=== PATIENT | female | born 1955 | race Caucasian/White ===

== ENCOUNTER 2018-02-02 12:08 | Inpatient (IN) | payer MEDICAID, OTHER ==
[~2018-02-02] VITALS: Ht 152.4 cm; Wt 65.3 kg
[2018-02-02 12:19] VITALS: BP 120/77
--- NOTE | 2018-02-02 12:27 | NUR ---
PT AMBULATES TO BED 2 Addendum: 02/02/18 at 1230 by [email or web address] REPORT GIVEN TO MIREYA COSTA
--- NOTE | 2018-02-02 12:30 | NUR ---
62Y/F BIB DAUGHTER IN [place] C/O LEFT FLANK PAIN. PT STATES " SHE HAS FLANK PAIN RADIATING TO L THIGH X YESTERDAY." PT TOOK IBUPRUFEN AT 3 AM TODAY WITH NO RELIEVE. PT SKIN IS PINK/WARM/DRY; AAOX4 WITH EVEN AND STEADY GAIT; LUNGS CLEAR BL; HR EVEN AND REGULAR; PT DENIES ANY FEVER, CP, SOB, OR COUGH AT THIS TIME; PATIENT STATES PAIN OF 8/10 AT THIS TIME; VSS; PATIENT POSITIONED FOR COMFORT; HOB ELEVATED; BEDRAILS UP X1; BED DOWN. ER MD MADE AWARE OF PT STATUS. HX ; GASTRIC ULCER, OVARY REMOVED 27 YEARS AGO MED : NONE
[2018-02-02] MEDS ORDERED: NACL 0.9% 1,000 ML IV SCH (12:44)
[2018-02-02] MEDS ORDERED: ONDANSETRON 4 MG/2 ML VIAL IVP ONE (12:45)
[2018-02-02] MEDS ORDERED: MORPHINE SULFATE 2 MG/ML SYR IVP ONE (12:45)
[2018-02-02] MEDS ORDERED: KETOROLAC 30 MG/ML VIAL IVP ONE (12:45)
--- NOTE | 2018-02-02 12:45 | NUR ---
Patient being evaluated by physician at bedside.
[2018-02-02 13:26] LABS: APPEARANCE,URINE HAZY (CLEAR); BILIRUBIN,URINE 1+ (NEGATIVE); BLOOD, URINE 3+ (NEGATIVE); COLOR,URINE RED (YELLOW); LEUKOCYTE ESTERASE ,URINE TRACE (NEGATIVE); NITRITE, URINE NEGATIVE (NEGATIVE); UGLUCOSE NEGATIVE (NEGATIVE)
[2018-02-02 13:30] LABS: BASOPHILS # (AUTO) 0.1 K/uL (0.00-0.22); EOSINOPHILS # (AUTO) 0.1 K/uL (0-0.4); EOSINOPHILS % (AUTO) 0.8 % (0.0-4.0); HEMATOCRIT 43.7 % (36-48); HEMOGLOBIN 14.6 g/dL (12.0-16.0); LYMPHOCYTES # (AUTO) 1.7 K/uL (2.5-16.5); LYMPHOCYTES % (AUTO) 21.7 % (20.5-51.1); MEAN CORPUSCULAR HEMOGLOBIN 29 pg (27-31); MEAN CORPUSCULAR HGB CONC 34 g/dL (33-37); MEAN CORPUSCULAR VOLUME 87.5 fL (80-94); MONOCYTES # (AUTO) 0.5 K/uL (0.8-1.0); MONOCYTES % (AUTO) 6.5 % (1.7-9.3); NEUTROPHILS # (AUTO) 5.6 K/uL (1.8-7.7); PLATELET COUNT (AUTO) 297 K/uL (140-450); RED BLOOD CELL COUNT(AUTO) 4.99 MIL/uL (4.20-5.40); RED CELL DISTRIBUTION WIDTH 12.8 % (11.6-13.7); WHITE BLOOD COUNT (AUTO) 7.9 K/uL (4.8-10.8)
[2018-02-02 13:32] LABS: RBC,URINE TOO NUMEROUS TO COUN /HPF (0-5); WBC,URINE 0-5 (RARE) /HPF (0-5)
[2018-02-02 13:53] LABS: ANION GAP 13.9 (8-16); CARBON DIOXIDE 24.5 mmol/L (21-32); CREATININE 0.6 mg/dL (0.6-1.3); POTASSIUM 3.4 mmol/L (3.5-5.1)
[2018-02-02 14:00] LABS: ALBUMIN 3.9 g/dL (3.4-5.0); TOTAL BILIRUBIN 0.8 mg/dL (0.0-1.0)
[2018-02-02] MEDS ORDERED: DOCUSATE SODIUM 100 MG GELCAP PO PRN (15:00)
[2018-02-02] MEDS ORDERED: ACETAMINOPHEN 325 MG TAB PO PRN (15:00)
[2018-02-02] MEDS ORDERED: ONDANSETRON 4 MG/2 ML VIAL IM/IVP PRN (15:00)
[2018-02-02] MEDS ORDERED: HYDROcodone/APAP 5/325 MG 1 TAB TAB PO PRN (15:00)
--- NOTE | 2018-02-02 15:19 | NUR ---
Patient will be admitted to care of DR. REYNOLDS. Admited to MED SURG. Will go to room 119-A. Belongings list completed. Report to JOSIANE ALBERTO.
[2018-02-02 15:37] LABS: BARBITURATE, URINE NEG. ng/ml (NEG <=200); BENZODIAZEPINE, URINE NEG. ng/mL (NEG <=200); CANNABINOID, URINE NEG. ng/mL (NEG <=50); COCAINE, URINE NEG. ng/mL (NEG <=300); OPIATE, URINE NEG. ng/mL (NEG <=2000); PHENCYCLIDINE SCREEN,URINE NEG. ng/mL (NEG <=25)
[2018-02-02] MEDS ORDERED: OMEP20TC12 PO (15:37)
--- NOTE | 2018-02-02 15:45 | NUR ---
PATIENT ADMITTED TO THE UNIT FROM ED. PATIENT AWAKE, ALERT AND ORIENTED. PATIENT ON ROOM AIR. NO S/S OF DISTRESS NOTED. PATIENT IS AMBULATORY. PATIENT DENIES ANY PAIN AT THIS TIME. BED LOWERED WITH CALL LIGHT WITHIN REACH. WILL CONTINUE TO MONITOR
[2018-02-02] MEDS: NACL 0.9% 1,000 ML IV SCH (15:57)
[2018-02-02 16:03] VITALS: BP 94/43
[2018-02-02 16:10] LABS: MAGNESIUM 2.2 mg/dL (1.8-2.4)
[2018-02-02 16:11] LABS: FREE T4 (FREE THYROXINE) 1.21 ng/dL (0.76-1.46); THYROID STIMULATING HORMONE 1.84 uIU/mL (0.34-3.74)
[2018-02-02] MEDS ORDERED: cefTRIAXone 1,000 MG VIAL ONE (17:51)
--- NOTE | 2018-02-02 18:48 | NUR ---
PATIENT AWAKE IN BED, WATCHING TELEVISION. AT BEDSIDE. NO C/O PAIN AT THIS TIME
[2018-02-02] MEDS ORDERED: POTASSIUM CHLORIDE 10 MEQ TABER PO SCH (19:00)
[2018-02-02] MEDS ORDERED: TAMSULOSIN 0.4 MG CAP PO SCH (19:00)
[2018-02-02] MEDS: KETOROLAC 15 MG/ML VIAL IVP PRN (19:01)
--- NOTE | 2018-02-02 19:20 | NUR ---
PATIENT REPORT GIVEN AT BEDSIDE. PATIENT ENDORSED IN STABLE CONDITION
--- NOTE | 2018-02-02 19:21 | NUR ---
REPORT RECEIVED FROM AM NURSE AT BEDSIDE. PT IN STABLE CONDITION. AAOX4. VS STABLE. INTRODUCED SELF TO PT AND FAMILY AND BOARD UPDATED. MALAY SPEAKING ONLY. IV SITE PATENT AND INTACT L AC 22G RUNNING NS AT 110ML/HR. SKIN WARM, DRY, AND INTACT WITH NO OPEN WOUNDS. PT HAS 5MM CALCULI SO URINE STRAINING IS TO BE DONE. BED LOCKED IN LOW POSITION. CALL RUEDA WITHIN REACH.
[2018-02-02 20:00] VITALS: BP 116/51
--- NOTE | 2018-02-02 22:30 | NUR ---
PT ASLEEP AT BEDSIDE. NO S/S OF DISTRESS NOTED. CHEST EXPANSION VISIBLE. WILL CONTINUE TO MONITOR.
[2018-02-03] VITALS: BP 81/44
[2018-02-03] MEDS: KETOROLAC 15 MG/ML VIAL IVP PRN (00:38)
--- NOTE | 2018-02-03 02:00 | NUR ---
NEW IV BAG OF NS HUNG. PT AWAKENED WHEN HANGING BAG. NO S/S OF DISTRESS.
[2018-02-03] MEDS: NACL 0.9% 1,000 ML IV SCH ×3 (02:10→14:45)
--- NOTE | 2018-02-03 05:12 | NUR ---
PT IN 10/10 PAIN. NORCO GIVEN. PT TOLERATED WELL.
--- NOTE | 2018-02-03 06:38 | NUR ---
PATIENT HAS BEEN SCREENED AND CATEGORIZED LOW NUTRITION RISK. PATIENT WILL BE SEEN WITHIN 7 DAYS OF ADMISSION. 02/09/18 ROSS ELKINS MS, RDN
--- NOTE | 2018-02-03 07:10 | NUR ---
REPORT GIVEN TO AM NURSE AT BEDSIDE. PT IN STABLE CONDITION.
--- NOTE | 2018-02-03 07:15 | NUR ---
RECEIVED PATIENT REPORT AT BEDSIDE. PATIENT ASLEEP BUT AROUSABLE. NO S/S OF DISTRESS. NO C/O PAIN AT THIS TIME. IV LINE TO THE LEFT AC INTACT WITH IVF INFUSING WELL. BED LOWERED WITH CALL LIGHT WITHIN REACH. WILL CONTINUE TO MONITOR
[2018-02-03 07:38] LABS: BASOPHILS # (AUTO) 0.1 K/uL (0.00-0.22); EOSINOPHILS # (AUTO) 0.1 K/uL (0-0.4); EOSINOPHILS % (AUTO) 1.3 % (0.0-4.0); HEMATOCRIT 38.5 % (36-48); HEMOGLOBIN 12.9 g/dL (12.0-16.0); LYMPHOCYTES # (AUTO) 1.5 K/uL (2.5-16.5); MEAN CORPUSCULAR HEMOGLOBIN 30 pg (27-31); MEAN CORPUSCULAR HGB CONC 34 g/dL (33-37); MEAN CORPUSCULAR VOLUME 88.4 fL (80-94); MONOCYTES # (AUTO) 0.4 K/uL (0.8-1.0); MONOCYTES % (AUTO) 7.2 % (1.7-9.3); NEUTROPHILS # (AUTO) 3.9 K/uL (1.8-7.7); NEUTROPHILS % (AUTO) 65.5 % (42.2-75.2); PLATELET COUNT (AUTO) 252 K/uL (140-450); RED BLOOD CELL COUNT(AUTO) 4.36 MIL/uL (4.20-5.40); WHITE BLOOD COUNT (AUTO) 5.9 K/uL (4.8-10.8)
[2018-02-03 07:47] VITALS: BP 93/43
[2018-02-03 07:57] LABS: ANION GAP 12.9 (8-16); CARBON DIOXIDE 23.9 mmol/L (21-32); CREATININE 0.6 mg/dL (0.6-1.3); POTASSIUM 3.8 mmol/L (3.5-5.1)
[2018-02-03] MEDS ORDERED: NACL 0.9% 1,000 ML IV SCH ×2 (08:05→08:25)
[2018-02-03 08:13] LABS: MAGNESIUM 1.9 mg/dL (1.8-2.4); PHOSPHORUS 2.7 mg/dL (2.5-4.9)
[2018-02-03] MEDS: LACTOBACILLUS RHAMNOSUS GG 1 EACH CAP PO SCH (08:34)
[2018-02-03] MEDS: PANTOPRAZOLE 40 MG TABEC PO SCH (08:34)
[2018-02-03] MEDS: TAMSULOSIN 0.4 MG CAP PO SCH (08:35)
[2018-02-03] MEDS ORDERED: NON-FORMULARY ITEM (Omeprazole (Omeprazole) 20 MG) PO SCH (09:00)
--- NOTE | 2018-02-03 09:45 | NUR ---
PATIENT AMBULATED TO THE BATHROOM TO VOID. URINE STRAINED. NO CALCULUS NOTED
[2018-02-03 10:52] LABS: T4 (THYROXINE) 8.2 ug/dL (4.5-12.0)
--- NOTE | 2018-02-03 11:07 | NUR ---
PATIENT ASLEEP IN BED. NO S/S OF DISTRESS NOTED
[2018-02-03 16:00] VITALS: BP 103/48
[2018-02-03 16:57] LABS: CHOL/HDL RATIO 5.3 (1-4.5)
--- NOTE | 2018-02-03 19:14 | NUR ---
PATIENT REPORT GIVEN AT BEDSIDE. PATIENT ENDORSED IN STABLE CONDITION
--- NOTE | 2018-02-03 19:15 | NUR ---
REPORT RECEIVED FROM AM NURSE AT BEDSIDE. PT IN STABLE CONDITION. AAOX4. INTRODUCED SELF AND BOARD UPDATED. IV SITE PATENT AND INTACT. SKIN WARM, DRY, AND INTACT WITH NO OPEN WOUNDS. PT IS [place] SPEAKING ONLY. AMBULATORY. BED LOCKED IN LOW POSITION. CALL RUEDA WITHIN REACH.
--- NOTE | 2018-02-03 20:45 | NUR ---
PT AWAKE AND ALERT IN BED. FAMILY AT BEDSIDE. NO S/S OF DISTRESS AND STATES NO PAIN.
[2018-02-04] VITALS: BP 113/42
--- NOTE | 2018-02-04 00:30 | NUR ---
PT FLUIDS ENDED. NEW NS BAG HUNG. PT SLEEPING BUT AROUSABLE UPON ENTERING ROOM. WILL CONTINUE TO MONITOR.
[2018-02-04] MEDS: NACL 0.9% 1,000 ML IV SCH (01:30)
--- NOTE | 2018-02-04 03:30 | NUR ---
PT UP OUT OF BED TO USE RESTROOM. NO S/S OF DISTRESS NOTED. WILL CONTINUE TO MONITOR.
--- NOTE | 2018-02-04 05:30 | NUR ---
PT SLEEPING LEFT LATERAL. NO S/S OF DISTRESS. CHEST EXPANSION VISIBLE. WILL CONTINUE TO MONITOR.
[2018-02-04 06:23] LABS: BASOPHILS % (AUTO) 0.8 % (0.0-2.0); EOSINOPHILS # (AUTO) 0.3 K/uL (0-0.4); EOSINOPHILS % (AUTO) 4.7 % (0.0-4.0); HEMATOCRIT 38.2 % (36-48); HEMOGLOBIN 12.8 g/dL (12.0-16.0); LYMPHOCYTES # (AUTO) 2.4 K/uL (2.5-16.5); LYMPHOCYTES % (AUTO) 44.5 % (20.5-51.1); MEAN CORPUSCULAR HEMOGLOBIN 30 pg (27-31); MEAN CORPUSCULAR HGB CONC 34 g/dL (33-37); MEAN CORPUSCULAR VOLUME 88.3 fL (80-94); MONOCYTES # (AUTO) 0.4 K/uL (0.8-1.0); MONOCYTES % (AUTO) 7.9 % (1.7-9.3); NEUTROPHILS # (AUTO) 2.3 K/uL (1.8-7.7); NEUTROPHILS % (AUTO) 42.1 % (42.2-75.2); PLATELET COUNT (AUTO) 247 K/uL (140-450); RED BLOOD CELL COUNT(AUTO) 4.32 MIL/uL (4.20-5.40); RED CELL DISTRIBUTION WIDTH 12.6 % (11.6-13.7); WHITE BLOOD COUNT (AUTO) 5.3 K/uL (4.8-10.8)
[2018-02-04 06:48] LABS: ANION GAP 12.9 (8-16); CARBON DIOXIDE 25.7 mmol/L (21-32); CREATININE 0.6 mg/dL (0.6-1.3); POTASSIUM 3.6 mmol/L (3.5-5.1)
[2018-02-04 06:53] LABS: MAGNESIUM 1.8 mg/dL (1.8-2.4); PHOSPHORUS 2.4 mg/dL (2.5-4.9)
--- NOTE | 2018-02-04 07:15 | NUR ---
REPORT GIVEN TO AM NURSE AT BEDSIDE. PT IN STABLE CONDITION.
--- NOTE | 2018-02-04 07:16 | NUR ---
RECEIVED REPORT FORM PM NURSE AT THE BEDSIDE. PT LYING ON BED COMFORTABLY. INTRODUCED SELF AND UPDATED BOARD. PT DENIED PAIN. NO SIGH OF DISTRESS. PT HAS IF ACCESS ON LFT HAND 22 G, NS INFUSING AT 110 ML/HR. CALL LIGHT WITHIN PT REACH. BED AT LOWER POSITION. WILL CONTINUE TO MONITOR PT.
[2018-02-04 08:00] VITALS: BP 115/54
[2018-02-04] MEDS: PANTOPRAZOLE 40 MG TABEC PO SCH (08:49)
[2018-02-04] MEDS: TAMSULOSIN 0.4 MG CAP PO SCH (08:49)
[2018-02-04] MEDS: LACTOBACILLUS RHAMNOSUS GG 1 EACH CAP PO SCH (08:49)
--- NOTE | 2018-02-04 08:50 | NUR ---
ADMINISTERED MEDS TO PT , TOLERATED WELL. P[T SITTING ON HER BED. HAVING BREAKFAST. FAMILY AT THE BEDSIDE. DENIES PAIN. NO SIGN OF DISTRESS. STRAINED HER URINE, NO STONE FOUND. CALL LIGHT WITHIN PT REACH. WILL CONTINUE TO MONITOR PT.
[2018-02-04] MEDS ORDERED: SODIUM PHOS / POTASSIUM PHOS 1 PKT PDR PO SCH (10:19)
[2018-02-04] MEDS ORDERED: TAMS0.4C96 PO (10:30)
[2018-02-04] MEDS ORDERED: ACET-9525 PO (10:30)
[2018-02-04] MEDS ORDERED: DOCU-299 PO (10:42)
--- NOTE | 2018-02-04 11:00 | NUR ---
CHECKED ON PT. ASKED IF SHE WANTED PNA VACCINE. PT WANTED IT. INFORMED DR ABOUT PNA VACCINATION. ORDER FOR THE PNA VACCINE. WILL ADMINISTER VACCINE AT THE TIME OF DISCHARGE. WILL CONTINUE TO MONITOR THE PT.
[2018-02-04 12:23] VITALS: BP 111/40
[2018-02-04] MEDS ORDERED: PNEUMOCOCCAL VACCINE 23 MCG/0.5 ML VIAL IMVAC SCH (12:55)
--- NOTE | 2018-02-04 13:45 | NUR ---
PT DISCHARGED. EXPLAINED ALL THE INSTRUCTION ORDERED TO THE PT. DAUGHTER IN[place] AT THE BEDSIDE. ALL DC PAPER AND THE PRESCRIPTION GIVEN TO THE PT. PNA VACCINE GIVEN AT THE TIME OF DC. TOLERATED WELL. PT IN STABLE CONDITION. PT LEFT THE HOSPITAL WITH ALL THE BELONGINGS AND WALKED OUT WITH HER GRANDDAUGHTER.
== END 2018-02-04 13:45 | disposition home or self-care (01) | DRG 465 ==
LOC: MED 12:08 → MTU 14:59
PROVIDERS: ADMIT General Practice; ATTEND General Practice
PROC: 3E0234Z Introduction of Serum, Toxoid and Vaccine into Muscle, Percutaneous Approach (ICD-10-PCS; principal; 2018-02-04)
DX: N13.2 Hydronephrosis with renal and ureteral calculous obstruction (principal); E87.8 Other disorders of electrolyte and fluid balance, not elsewhere classified; I95.9 Hypotension, unspecified; I48.91 Unspecified atrial fibrillation; E83.39 Other disorders of phosphorus metabolism; K25.9 Gastric ulcer, unspecified as acute or chronic, without hemorrhage or perforation; N39.0 Urinary tract infection, site not specified; E87.6 Hypokalemia; K21.9 Gastro-esophageal reflux disease without esophagitis; E83.52 Hypercalcemia; R31.9 Hematuria, unspecified; R82.4 Acetonuria; K42.9 Umbilical hernia without obstruction or gangrene; E78.5 Hyperlipidemia, unspecified; Z23 Encounter for immunization
CPT/HCPCS: 36415; 71045; 80048; 80053; 80305; 81001; 82150; 83036; 83690; 83735; 83880; 83970; 84100; 84436; 84439; 84443; 84479; 85025; 85610; 85730; 87081; 87086; 90732; 93005; 96361; 96374; 96375; 99285; J0696; J1885; J2270; J2405; J7030; J7060; Q0092

== ENCOUNTER 2021-04-19 21:56 | Emergency (ER) | payer MEDICAID, OTHER ==
[~2021-04-19] VITALS: Ht 157.5 cm; Wt 68.5 kg
[~2021-04-19 21:56] MED LIST: ACET-9525 PO; DOCU-299 PO; OMEP-278 PO; TAMS0.4C96 PO
[2021-04-19 22:18] VITALS: BP 130/70
--- NOTE | 2021-04-20 01:15 | NUR ---
SEEN AND EXAMINED BY [facility]
[2021-04-20] MEDS ORDERED: NACL 0.9% 1,000 ML IV ONE (01:20)
[2021-04-20] MEDS ORDERED: ONDANSETRON 4 MG/2 ML VIAL IVP ONE (01:20)
[2021-04-20] MEDS ORDERED: MORPHINE SULFATE 2 MG/ML SYR IVP ONE (01:20)
--- NOTE | 2021-04-20 01:30 | NUR ---
MEDICATED PER ERMDS ORDER , TOLERATED WELL.
[2021-04-20 01:49] LABS: BASOPHILS # (AUTO) 0.1 K/uL (0.00-0.22); BASOPHILS % (AUTO) 0.6 % (0.0-2.0); EOSINOPHILS % (AUTO) 0.4 % (0.0-4.0); HEMATOCRIT 43.4 % (36-48); HEMOGLOBIN 14.7 g/dL (12.0-16.0); LYMPHOCYTES # (AUTO) 1.4 K/uL (2.5-16.5); LYMPHOCYTES % (AUTO) 16.8 % (20.5-51.1); MEAN CORPUSCULAR HEMOGLOBIN 30 pg (27-31); MEAN CORPUSCULAR HGB CONC 34 g/dL (33-37); MEAN CORPUSCULAR VOLUME 88.6 fL (80-94); MONOCYTES # (AUTO) 0.4 K/uL (0.8-1.0); NEUTROPHILS # (AUTO) 6.4 K/uL (1.8-7.7); NEUTROPHILS % (AUTO) 77.2 % (42.2-75.2); PLATELET COUNT (AUTO) 291 K/uL (140-450); WHITE BLOOD COUNT (AUTO) 8.3 K/uL (4.8-10.8)
[2021-04-20 02:03] LABS: ANION GAP 18.5 (8-16); CREATININE 0.8 mg/dL (0.6-1.3); POTASSIUM 3.5 mmol/L (3.5-5.1)
--- NOTE | 2021-04-20 04:30 | NUR ---
ALL RESULTS BACK AND NOTED BY ERMTiffanie
[2021-04-20] MEDS ORDERED: ACET-503 PO (04:38)
[2021-04-20 04:40] VITALS: BP 119/76
--- NOTE | 2021-04-20 04:40 | NUR ---
Patient discharged with v/s stable. Written and verbal after care instructions given and explained. Patient verbalized understanding. Ambulatory with steady gait. All questions addressed prior to discharge. Advised to follow up with PMD.
== END 2021-04-20 04:40 | disposition home or self-care (01) ==
LOC: MED 21:56
DX: N13.9 Obstructive and reflux uropathy, unspecified (principal)
CPT/HCPCS: 36415; 74176; 80048; 85025; 96361; 96374; 96375; 99284; J2270; J2405